=== PATIENT | female | born 1995 | race Caucasian/White ===

== ENCOUNTER 2018-10-16 04:26 | Outpatient (CLI) | payer OTHER, SELFPAY ==
[2018-10-16 05:35] LABS: Mucous, Urine 0 SEEN /hpf (<or=2+); Red Blood Cells-Urine 0 SEEN /hpf (0-5)
[2018-10-16 05:44] VITALS: BMI 26.2
[2018-10-16 06:29] LABS: Color, Urine Yellow (Yellow); Glucose, Dipstick Normal (Normal); Ketone-Dipstick 50 mg/dl (Negative); Leukocyte Esterase-Dipstick Negative /ul (Negative); Nitrite-Dipstick Negative (Negative); Occult Blood-Urine Negative /ul (Negative); Protein-Dipstick Negative (Negative); Urine Bilirubin Dipstick Negative (Negative); Urine Clarity Sl. Cloudy (Clear); Urine Urobilinogen Normal (Normal)
[2018-10-16 06:34] LABS: Bacteria 1+ /hpf (None Seen); Squamous Epithelial Cells - UA 0-5 SEEN /hpf (5-10); White Blood Cells 0-5 SEEN /hpf (0-5)
--- NOTE | 2018-10-16 08:15 | PCM.HP.OB ---
- Problem List (1) Ureteral calculus, right Status: Inactive Comment: 21 yo female with 8mm stone in distal right ureter causing pain and obstruction of the right kidney, presented to ER. Offered intervention given large size and patient agreed to admission for resolution of stone and pain control. (2) False labor Status: Acute (3) Abdominal pain affecting Status: Acute History Date of Admission: 10/16/18 Final CECILIA: 12/31/18 Gestational age: 29 Weeks and 1 Days History of this : This is a 23 year-old, G [5], P [2], possible two SABS (one with positive UPT) Presents for evaluation d/t possible labor at 29 wks. aware of cramping q 3 min for one hr prior to presentation. Denies UTI sx but states some diarrhea yesterday. 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 PMH: Kidney stone, January 23, 2017 H/o one seizure January 2017 PSH: Lithotripsy, December 2016 FH: noncontributory Social: non smoker, no drugs, no EtOH. NKDA but topical sensitivity to [place] jelly MEDS: PNV. Past OB hx. AB1 or 2 Two term deliveries at 40+ wks. 03/13/15 and 12/31/16. uncomplicated pregnancies. One SAB 3 wks after positive UPT One possible / presumed SAB, heavy period but no positive test. Medical History: Medical History (Last Updated 10/16/18 @ 08:19 by Anjali Sykes MD) Kidney stone N20.0 Seizure R56.9 Surgical History: Surgical History (Last Updated 10/16/18 @ 08:19 by Anjali Sykes MD) H/O lithotripsy Z98.890 Allergies surgical lubricant [From Surgilube] Allergy (Verified 10/16/18 05:14) Rash Home Medications: Home Medications Vits [Prenatabs FA] 1 tablet PO DAILY 01/27/17 Smoking Status: Never smoker Alcohol: None Number of Fetus(es): 1 Heart Tracins with accels to 165. Variable with quick return, lasting under 10 sec with esperanza at 120 TOCO Analysis: No regular UCs noted. One ? on monitor in 65 min monitoring. History Past Pregnancies: Past Pregnancies Delivery Date Name GA/Weeks Outcome Route Weight Infant Gender Labor Length Anesthesia Delivery Location Provider FOB Labs: NONE drawn per pt. Seeing a manager of community relations. Review of Systems Constitutional: Denies: Chills Eyes: Denies: Blurred vision HEENT: Denies: Difficulty Hearing Respiratory: Denies: Cough Gastrointestinal: Reports: Abdominal Pain - better now that she is here. ? UCs / cramping q 3 min in the hr prior to coming in for evaluation. Genitourinary: Denies: Dysuria, Hematuria Gynecological: Denies: Vaginal bleeding Physical Exam General: Alert, Oriented x3, Cooperative, No apparent distress HEENT: Atraumatic Cardiovascular: Regular rate Lungs: Clear to auscultation Abdomen: Non Tender, Gravid Extremities:: No clubbing, No cyanosis, No edema Neurological: Cranial nerves II-XII grossly intact ON SITE SERVICES SPECIALIST: Normal external genitalia Estimated gestational size: Appropriate for gestational size Cervix Dilation (cm): 0 Station: -3 Effacement (%): 0 - cervix anterior, behind pubic symphysis. Assessment/Plan All Active Problems (Last Updated 10/16/18 @ 08:19 by Anjali Sykes MD) False labor (Acute) Abdominal pain affecting (Acute) This is a 23 year-old, AB 2 (one of these UNPROVEN SAB) , at 29 wk gestational age. Cramping. False labor EFM reassuring for EGA UA to be sent. Suspect pain due to bowel (diarrhea yesterday) Home. Offered and declined panel. Offered and declined FFN testing. Offered and declined tylenol for cramping.
--- NOTE | 2018-10-16 08:19 | HP.PCM_ITS ---
- Problem List (1) Ureteral calculus, right Status: Inactive Comment: 21 yo female with 8mm stone in distal right ureter causing pain and obstruction of the right kidney, presented to ER. Offered intervention given large size and patient agreed to admission for resolution of stone and pain control. (2) False labor Status: Acute (3) Abdominal pain affecting Status: Acute History Date of Admission: 10/16/18 Final CECILIA: 12/31/18 Gestational age: 29 Weeks and 1 Days History of this : This is a 23 year-old, G [5], P [2], possible two SABS (one with positive UPT) Presents for evaluation d/t possible labor at 29 wks. aware of cramping q 3 min for one hr prior to presentation. Denies UTI sx but states some diarrhea yesterday. 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 PMH: Kidney stone, January 23, 2017 H/o one seizure January 2017 PSH: Lithotripsy, December 2016 FH: noncontributory Social: non smoker, no drugs, no EtOH. NKDA but topical sensitivity to [place] jelly MEDS: PNV. Past OB hx. AB1 or 2 Two term deliveries at 40+ wks. 03/13/15 and 12/31/16. uncomplicated pregnanci es. One SAB 3 wks after positive UPT One possible / presumed SAB, heavy period but no positive test. Medical History: Medical History (Last Updated 10/16/18 @ 08:19 by Anjali Sykes MD) Kidney stone N20.0 Seizure R56.9 Surgical History: Surgical History (Last Updated 10/16/18 @ 08:19 by Anjali Sykes MD) H/O lithotripsy Z98.890 Allergies surgical lubricant [From Surgilube] Allergy (Verified 10/16/18 05:14) Rash Home Medications: Home Medications Vits [Prenatabs FA] 1 tablet PO DAILY 01/27/17 Smoking Status: Never smoker Alcohol: None Number of Fetus(es): 1 Heart Tracins with accels to 165. Variable with quick return, lasting under 10 sec with esperanza at 120 TOCO Analysis: No regular UCs noted. One ? on monitor in 65 min monitoring. History Past Pregnancies: Past Pregnancies Delivery Date Name GA/Weeks Outcome Route Weight Infant Gender Labor Length Anesthesia Delivery Location Provider FOB Labs: NONE drawn per pt. Seeing a community development technician. Review of Systems Constitutional: Denies: Chills Eyes: Denies: Blurred vision HEENT: Denies: Difficulty Hearing Respiratory: Denies: Cough Gastrointestinal: Reports: Abdominal Pain - better now that she is here. ? UCs / cramping q 3 min in the hr prior to coming in for evaluation. Genitourinary: Denies: Dysuria, Hematuria Gynecological: Denies: Vaginal bleeding Physical Exam General: Alert, Oriented x3, Cooperative, No apparent distress HEENT: Atraumatic Cardiovascular: Regular rate Lungs: Clear to auscultation Abdomen: Non Tender, Gravid Extremities:: No clubbing, No cyanosis, No edema Neurological: Cranial nerves II-XII grossly intact VETERINARY EPIDEMIOLOGIST: Normal external genitalia Estimated gestational size: Appropriate for gestational size Cervix Dilation (cm): 0 Station: -3 Effacement (%): 0 - cervix anterior, behind pubic symphysis. Assessment/Plan All Active Problems (Last Updated 10/16/18 @ 08:19 by Anjali Sykes MD) False labor (Acute) Abdominal pain affecting (Acute) This is a 23 year-old, AB 2 (one of these UNPROVEN SAB) , at 29 wk gestational age. Cramping. False labor EFM reassuring for EGA UA to be sent. Suspect pain due to bowel (diarrhea yesterday) Home. Offered and declined panel. Offered and declined FFN testing. Offered and declined tylenol for cramping.
== END 2018-10-16 05:50 | disposition home or self-care (01) ==
LOC: WPOUT 04:36 → WP 04:36
PROVIDERS: Referring Provider Obstetrics & Gynecology; Visit Provider Obstetrics & Gynecology
DX: O47.03 False labor before 37 completed weeks of gestation, third trimester (principal); Z3A.29 29 weeks gestation of pregnancy; Z87.442 Personal history of urinary calculi
CPT/HCPCS: 59025; 59050; 81001; 99218; G0378